=== PATIENT | female | born 2000 | race Caucasian/White ===

== ENCOUNTER 2018-04-19 08:09 | Emergency (ER) | payer OTHER ==
[2018-04-19 08:17] VITALS: BP 118/74
--- NOTE | 2018-05-31 11:34 | UC ---
General HPI - HPI Summary HPI Summary: Pleasant 18 yo female presents w/ c/o genital sores, c/w previously dx'd hx hsv. Script for maintainance (500mg) ran out, and will not be able to get refill for a few days. No fever / chills. No abd discomfort. No urinary issues. - History of Current Complaint Chief Complaint: UCMedRefill Stated Complaint: MEDICATION REFILL Time Seen by Provider: 04/19/18 09:19 Hx Obtained From: Patient Hx Last Menstrual Period: bcp Pain Intensity: 4 - Allergy/Home Medications Allergies/Adverse Reactions: Allergies Allergy/AdvReac Type Severity Reaction Status Date / Time No Known Allergies Allergy Verified 04/19/18 08:17 PMH/Surg Hx/FS Hx/Imm Hx Previously Healthy: Yes - Surgical History Surgical History: Yes Surgery Procedure, Year, and Place: wisdom teeth - Family History Known Family History: Positive: Unknown - Social History Alcohol Use: None Substance Use Type: None Smoking Status (MU): Never Smoked Tobacco - Immunization History Vaccination Up to Date: Yes Review of Systems Constitutional: Negative Skin: Other - see hpi Eyes: Negative ENT: Negative Respiratory: Negative Cardiovascular: Negative Gastrointestinal: Negative Genitourinary: Other - see hpi Motor: Negative Neurovascular: Negative Musculoskeletal: Negative Neurological: Negative Psychological: Negative Is Patient Immunocompromised?: No All Other Systems Reviewed And Are Negative: Yes Physical Exam Triage Information Reviewed: Yes Appearance: Well-Appearing, Well-Nourished Vital Signs: Initial Vital Signs Temp 97.5 F 04/19/18 08:13 Pulse 100 04/19/18 08:13 Resp 18 04/19/18 08:13 BP 118/74 04/19/18 08:13 Pulse Ox 100 04/19/18 08:13 Vital Signs Reviewed: Yes Eye Exam: Normal - grossly normal ENT Exam: Normal - grossly normal no rylie sores Neck exam: Normal Neck: Positive: Supple Respiratory Exam: Normal - no tachypnea, no dyspnea Cardiovascular Exam: Normal - heart rate regular, nondiaphoretic Abdominal Exam: Normal - pelvic deferred (pt declines, d/t known hx of this problem) Abdomen Description: Positive: Nontender Musculoskeletal Exam: Normal Neurological Exam: Normal - grossly nonfocal, hx hsv Psychological Exam: Normal - conversing easily and appropriately Skin Exam: Other - see hpi otherwise no visible or reported rash Course/Dx - Course Course Of Treatment: Rx valtrex (treatment dose) prescribed. Reviewed coa /tx plan. Questions as posed answered to the best of my ability. - Differential Dx - Multi-Symptom Provider Diagnoses: Medication refill. HSV Discharge - Sign-Out/Discharge Documenting (check all that apply): Patient Departure - Discharge Plan Condition: Stable Disposition: HOME Prescriptions: ValACYclovir (*) [Valtrex 1 GM(*)] 1 gm PO BID #14 tab Patient Education Materials: Genital Herpes Simplex (ED) Referrals: Daniel Snyder MD [Primary Care Provider] - Additional Instructions: Follow up with your primary care physician per routine. Seek medical attention for worse or new problems in the meantime. Drink plenty of water. - Billing Disposition and Condition Condition: STABLE Disposition: Home
== END 2018-04-19 09:43 | disposition home or self-care (01) ==
LOC: UCEAST 08:09
DX: A60.00 Herpesviral infection of urogenital system, unspecified (principal); Z76.0 Encounter for issue of repeat prescription
CPT/HCPCS: 99211; G0463